=== PATIENT | female | born 1965 | race Caucasian/White ===

== ENCOUNTER 2017-09-25 08:20 | Inpatient (IN) | payer OTHER ==
[~2017-09-25] VITALS: Ht 165.1 cm; Wt 86.8 kg
[2017-09-25 10:21] LABS: BASOPHILS ABSOLUTE AUTO 0.04 K/mm3 (0.00-0.23); BASOPHILS PERCENT AUTO 0 % (0-2); EOSINOPHILS ABSOLUTE AUTO 0.03 K/mm3 (0.00-0.68); EOSINOPHILS PERCENT AUTO 0 % (0-6); Hemoglobin 12.2 g/dL (11.5-16.0); IMMATURE GRAN ABSOLUTE AUTO 0.12 K/mm3 (0.00-0.10); IMMATURE GRAN PERCENT AUTO 1 % (0-1); LYMPHOCYTES ABSOLUTE AUTO 1.71 K/mm3 (0.84-5.20); LYMPHOCYTES PERCENT AUTO 11 % (21-46); MONOCYTES ABSOLUTE AUTO 1.39 K/mm3 (0.16-1.47); MONOCYTES PERCENT AUTO 9 % (4-13); Mean Corpuscular HGB 29.8 pg (26.0-34.0); Mean Corpuscular Volume 90 fL (80-100); Mean Platelet Volume 10.9 fL (9.1-12.4); NEUTROPHILS ABSOLUTE AUTO 12.06 K/mm3 (1.96-9.15); NEUTROPHILS PERCENT AUTO 79 % (41-73); Platelet Count 222 K/mm3 (150-400); RDW Standard Deviation 49.7 fL (35.1-46.3); White Blood Cell Count 15.35 K/mm3 (4.00-11.30)
[2017-09-25 10:34] LABS: Alanine Aminotransfer (ALT/SGP 32 U/L (12-78); Albumin, Blood 2.4 g/dL (3.4-5.0); Albumin/Globulin Ratio 0.5 (0.8-1.8); Alk Phos 118 U/L (50-136); Anion Gap 6 mmol/L (6-16); Aspartate Aminotrans (AST/SGOT 36 U/L (12-37); Bilirubin, Total 0.4 mg/dL (0.1-1.0); Blood Urea Nitrogen 17 mg/dL (8-24); Bun/Creatinine Ratio 24.3 (12.0-20.0); CO2, Blood 32 mmol/L (21-32); Calcium, Blood 8.8 mg/dL (8.5-10.1); Chloride, Blood 98 mmol/L (98-108); Globulin, Blood 4.8 g/dL (2.2-4.0); Glomerular Filtration Rate >60 (60-); Glucose, Blood 112 mg/dL (70-99); Potassium, Blood 3.4 mmol/L (3.5-5.5); Sodium, Blood 136 mmol/L (136-145); Total Protein, Blood 7.2 g/dL (6.4-8.2)
[2017-09-26 06:25] LABS: BASOPHILS ABSOLUTE AUTO 0.02 K/mm3 (0.00-0.23); BASOPHILS PERCENT AUTO 0 % (0-2); EOSINOPHILS ABSOLUTE AUTO 0.12 K/mm3 (0.00-0.68); EOSINOPHILS PERCENT AUTO 1 % (0-6); Hematocrit 31.8 % (33.0-51.0); Hemoglobin 10.4 g/dL (11.5-16.0); IMMATURE GRAN ABSOLUTE AUTO 0.14 K/mm3 (0.00-0.10); IMMATURE GRAN PERCENT AUTO 1 % (0-1); LYMPHOCYTES ABSOLUTE AUTO 1.53 K/mm3 (0.84-5.20); LYMPHOCYTES PERCENT AUTO 11 % (21-46); MONOCYTES ABSOLUTE AUTO 1.18 K/mm3 (0.16-1.47); MONOCYTES PERCENT AUTO 8 % (4-13); Mean Corpuscular HGB 29.6 pg (26.0-34.0); Mean Corpuscular HGB Conc 32.7 g/dL (31.5-36.5); Mean Corpuscular Volume 91 fL (80-100); Mean Platelet Volume 10.4 fL (9.1-12.4); NEUTROPHILS ABSOLUTE AUTO 11.19 K/mm3 (1.96-9.15); NEUTROPHILS PERCENT AUTO 79 % (41-73); Platelet Count 221 K/mm3 (150-400); RDW Coefficient Variation 15.4 % (11.7-14.2); RDW Standard Deviation 51.1 fL (35.1-46.3); Red Blood Cell Count 3.51 M/mm3 (3.80-5.20); White Blood Cell Count 14.18 K/mm3 (4.00-11.30)
[2017-09-26 07:43] LABS: Anion Gap 7 mmol/L (6-16); Blood Urea Nitrogen 18 mg/dL (8-24); Bun/Creatinine Ratio 24.9 (12.0-20.0); CO2, Blood 30 mmol/L (21-32); Calcium, Blood 8.6 mg/dL (8.5-10.1); Chloride, Blood 101 mmol/L (98-108); Creatinine, Blood 0.72 mg/dL (0.40-1.00); Glomerular Filtration Rate >60 (60-); Glucose, Blood 92 mg/dL (70-99); Potassium, Blood 3.6 mmol/L (3.5-5.5); Sodium, Blood 138 mmol/L (136-145)
[2017-09-27 05:48] LABS: BASOPHILS ABSOLUTE AUTO 0.03 K/mm3 (0.00-0.23); BASOPHILS PERCENT AUTO 0 % (0-2); EOSINOPHILS ABSOLUTE AUTO 0.15 K/mm3 (0.00-0.68); EOSINOPHILS PERCENT AUTO 1 % (0-6); Hematocrit 31.6 % (33.0-51.0); Hemoglobin 10.3 g/dL (11.5-16.0); IMMATURE GRAN ABSOLUTE AUTO 0.28 K/mm3 (0.00-0.10); IMMATURE GRAN PERCENT AUTO 2 % (0-1); LYMPHOCYTES ABSOLUTE AUTO 1.67 K/mm3 (0.84-5.20); LYMPHOCYTES PERCENT AUTO 11 % (21-46); MONOCYTES ABSOLUTE AUTO 0.99 K/mm3 (0.16-1.47); MONOCYTES PERCENT AUTO 7 % (4-13); Mean Corpuscular HGB 29.9 pg (26.0-34.0); Mean Corpuscular HGB Conc 32.6 g/dL (31.5-36.5); Mean Corpuscular Volume 92 fL (80-100); Mean Platelet Volume 10.7 fL (9.1-12.4); NEUTROPHILS ABSOLUTE AUTO 12.21 K/mm3 (1.96-9.15); NEUTROPHILS PERCENT AUTO 80 % (41-73); Platelet Count 292 K/mm3 (150-400); RDW Coefficient Variation 15.6 % (11.7-14.2); RDW Standard Deviation 53.1 fL (35.1-46.3); Red Blood Cell Count 3.44 M/mm3 (3.80-5.20); White Blood Cell Count 15.33 K/mm3 (4.00-11.30)
[2017-09-27 13:12] LABS: Vancomycin, Trough 11.5 ug/mL (5.0-10.0)
[2017-09-28 06:55] LABS: BASOPHILS ABSOLUTE AUTO 0.04 K/mm3 (0.00-0.23); BASOPHILS PERCENT AUTO 0 % (0-2); EOSINOPHILS ABSOLUTE AUTO 0.23 K/mm3 (0.00-0.68); EOSINOPHILS PERCENT AUTO 2 % (0-6); Hematocrit 30.3 % (33.0-51.0); Hemoglobin 9.7 g/dL (11.5-16.0); IMMATURE GRAN ABSOLUTE AUTO 0.36 K/mm3 (0.00-0.10); IMMATURE GRAN PERCENT AUTO 3 % (0-1); LYMPHOCYTES ABSOLUTE AUTO 1.67 K/mm3 (0.84-5.20); LYMPHOCYTES PERCENT AUTO 12 % (21-46); MONOCYTES ABSOLUTE AUTO 1.03 K/mm3 (0.16-1.47); MONOCYTES PERCENT AUTO 7 % (4-13); Mean Corpuscular HGB 29.4 pg (26.0-34.0); Mean Corpuscular Volume 92 fL (80-100); Mean Platelet Volume 10.3 fL (9.1-12.4); NEUTROPHILS ABSOLUTE AUTO 10.85 K/mm3 (1.96-9.15); NEUTROPHILS PERCENT AUTO 77 % (41-73); Platelet Count 379 K/mm3 (150-400); RDW Coefficient Variation 15.5 % (11.7-14.2); RDW Standard Deviation 52.3 fL (35.1-46.3); White Blood Cell Count 14.18 K/mm3 (4.00-11.30)
[2017-09-29 14:24] LABS: Vancomycin, Trough 30.8 ug/mL (5.0-10.0)
[2017-09-30 05:48] LABS: Hematocrit 31.5 % (33.0-51.0); Hemoglobin 10.4 g/dL (11.5-16.0); Mean Corpuscular HGB 29.7 pg (26.0-34.0); Mean Corpuscular Volume 90 fL (80-100); Mean Platelet Volume 9.8 fL (9.1-12.4); Platelet Count 507 K/mm3 (150-400); RDW Coefficient Variation 15.3 % (11.7-14.2); White Blood Cell Count 15.93 K/mm3 (4.00-11.30)
[2017-09-30 05:52] LABS: Bun/Creatinine Ratio 16.5 (12.0-20.0); Calcium, Blood 9.3 mg/dL (8.5-10.1); Creatinine, Blood 1.15 mg/dL (0.40-1.00); Potassium, Blood 4.4 mmol/L (3.5-5.5)
[2017-09-30 07:04] LABS: BAND PERCENT MAN 2 % (0-8); BASOPHILS PERCENT MAN 0 % (0-2); EOSINOPHILS PERCENT MAN 0 % (0-6); LYMPHOCYTES ABSOLUTE MAN 2.86 K/mm3 (0.84-5.20); LYMPHOCYTES PERCENT MAN 18 % (21-46); METAMYELOCYTE ABSOLUTE MAN 0.15 K/mm3 (0.00-0.00); METAMYELOCYTE PERCENT MAN 1 % (0-0); MONOCYTES ABSOLUTE MAN 1.11 K/mm3 (0.16-1.47); MONOCYTES PERCENT MAN 7 % (4-13); NEUTROPHILS ABSOLUTE MAN 11.78 K/mm3 (1.96-9.15); SEG NEUTROPHILS PERCENT MAN 72 % (41-73); TOTAL CELLS COUNTED 100
[2017-10-01 10:32] LABS: Vancomycin, Trough 19.2 ug/mL (5.0-10.0)
[2017-10-02 05:55] LABS: BASOPHILS ABSOLUTE AUTO 0.07 K/mm3 (0.00-0.23); BASOPHILS PERCENT AUTO 1 % (0-2); EOSINOPHILS ABSOLUTE AUTO 0.24 K/mm3 (0.00-0.68); EOSINOPHILS PERCENT AUTO 2 % (0-6); Hematocrit 31.1 % (33.0-51.0); Hemoglobin 10.1 g/dL (11.5-16.0); IMMATURE GRAN ABSOLUTE AUTO 0.44 K/mm3 (0.00-0.10); IMMATURE GRAN PERCENT AUTO 4 % (0-1); LYMPHOCYTES ABSOLUTE AUTO 2.27 K/mm3 (0.84-5.20); LYMPHOCYTES PERCENT AUTO 19 % (21-46); MONOCYTES PERCENT AUTO 7 % (4-13); Mean Corpuscular HGB 29.5 pg (26.0-34.0); Mean Corpuscular HGB Conc 32.5 g/dL (31.5-36.5); Mean Corpuscular Volume 91 fL (80-100); Mean Platelet Volume 9.9 fL (9.1-12.4); NEUTROPHILS ABSOLUTE AUTO 8.26 K/mm3 (1.96-9.15); NEUTROPHILS PERCENT AUTO 68 % (41-73); Platelet Count 606 K/mm3 (150-400); RDW Coefficient Variation 14.9 % (11.7-14.2); RDW Standard Deviation 49.5 fL (35.1-46.3); Red Blood Cell Count 3.42 M/mm3 (3.80-5.20); White Blood Cell Count 12.08 K/mm3 (4.00-11.30)
[2017-10-02 06:21] LABS: Creatinine, Blood 1.27 mg/dL (0.40-1.00); Potassium, Blood 4.6 mmol/L (3.5-5.5)
[2017-10-02 11:15] LABS: Vancomycin, Trough 25.1 ug/mL (5.0-10.0)
[2017-10-02 16:42] LABS: Vancomycin, Random 21.2 ug/mL
[2017-10-03 05:39] LABS: BASOPHILS ABSOLUTE AUTO 0.04 K/mm3 (0.00-0.23); BASOPHILS PERCENT AUTO 0 % (0-2); EOSINOPHILS ABSOLUTE AUTO 0.24 K/mm3 (0.00-0.68); EOSINOPHILS PERCENT AUTO 2 % (0-6); Hematocrit 32.4 % (33.0-51.0); Hemoglobin 10.4 g/dL (11.5-16.0); IMMATURE GRAN PERCENT AUTO 4 % (0-1); LYMPHOCYTES ABSOLUTE AUTO 2.31 K/mm3 (0.84-5.20); LYMPHOCYTES PERCENT AUTO 22 % (21-46); MONOCYTES ABSOLUTE AUTO 0.84 K/mm3 (0.16-1.47); MONOCYTES PERCENT AUTO 8 % (4-13); Mean Corpuscular HGB 29.1 pg (26.0-34.0); Mean Corpuscular HGB Conc 32.1 g/dL (31.5-36.5); Mean Corpuscular Volume 91 fL (80-100); Mean Platelet Volume 9.8 fL (9.1-12.4); NEUTROPHILS ABSOLUTE AUTO 6.64 K/mm3 (1.96-9.15); NEUTROPHILS PERCENT AUTO 63 % (41-73); Platelet Count 602 K/mm3 (150-400); RDW Coefficient Variation 14.9 % (11.7-14.2); Red Blood Cell Count 3.57 M/mm3 (3.80-5.20); White Blood Cell Count 10.47 K/mm3 (4.00-11.30)
[2017-10-04] MEDS ORDERED: Hydrocodone-Ap1 EA20 PO (10:42)
[2017-10-04] MEDS ORDERED: CEPH500 PO (10:43)
[2017-10-04] MEDS ORDERED: FLUC150A PO (10:45)
== END 2017-10-04 12:08 | disposition home or self-care (01) | DRG 872 ==
LOC: ER 08:20 → MEDS 12:42 → ENPENDDIS 10-04 11:09 → MEDS 10-04 12:08
PROVIDERS: Hospitalist; Internal Medicine; Pharmacist; Physician Assistant
PROC: 3E0234Z Introduction of Serum, Toxoid and Vaccine into Muscle, Percutaneous Approach (ICD-10-PCS; principal; 2017-09-25)
DX: A41.9 Sepsis, unspecified organism (principal); L03.115 Cellulitis of right lower limb; Z23 Encounter for immunization; E87.6 Hypokalemia; B95.61 Methicillin susceptible Staphylococcus aureus infection as the cause of diseases classified elsewhere; B95.1 Streptococcus, group B, as the cause of diseases classified elsewhere
CPT/HCPCS: 36415; 73701; 80048; 80053; 80202; 83605; 85025; 85651; 86140; 87040; 87070; 87077; 87147; 87186; 87205; 93971; 96361; 96365; 96375; 99285; C1751; J0690; J1650; J1885; J1956; J2543; J3370; J7030; J7050; Q2038; Q9967

== ENCOUNTER 2019-11-09 16:16 | Inpatient (IN) | payer SELFPAY ==
[~2019-11-09] VITALS: Ht 165.1 cm; Wt 98.1 kg
[~2019-11-09 16:16] MED LIST: CEPH500 PO; FLUC150A PO; Hydrocodone-Ap1 EA20 PO
[2019-11-09 17:16] LABS: BASOPHILS ABSOLUTE AUTO 0.06 K/mm3 (0.00-0.23); BASOPHILS PERCENT AUTO 1 % (0-2); EOSINOPHILS ABSOLUTE AUTO 0.16 K/mm3 (0.00-0.68); EOSINOPHILS PERCENT AUTO 2 % (0-6); Hematocrit 40.5 % (33.0-51.0); Hemoglobin 12.8 g/dL (11.5-16.0); IMMATURE GRAN ABSOLUTE AUTO 0.03 K/mm3 (0.00-0.10); IMMATURE GRAN PERCENT AUTO 0 % (0-1); LYMPHOCYTES ABSOLUTE AUTO 2.46 K/mm3 (0.84-5.20); LYMPHOCYTES PERCENT AUTO 24 % (21-46); MONOCYTES ABSOLUTE AUTO 0.76 K/mm3 (0.16-1.47); MONOCYTES PERCENT AUTO 7 % (4-13); Mean Corpuscular HGB 28.5 pg (26.0-34.0); Mean Corpuscular HGB Conc 31.6 g/dL (31.5-36.5); Mean Corpuscular Volume 90 fL (80-100); Mean Platelet Volume 12.8 fL (9.1-12.4); NEUTROPHILS ABSOLUTE AUTO 6.86 K/mm3 (1.96-9.15); NEUTROPHILS PERCENT AUTO 66 % (41-73); Platelet Count 211 K/mm3 (150-400); RDW Coefficient Variation 14.5 % (11.7-14.2); RDW Standard Deviation 47.2 fL (35.1-46.3); Red Blood Cell Count 4.49 M/mm3 (3.80-5.20); White Blood Cell Count 10.33 K/mm3 (4.00-11.30)
[2019-11-09 17:40] LABS: Alanine Aminotransfer (ALT/SGP 32 U/L (12-78); Albumin, Blood 3.3 g/dL (3.4-5.0); Albumin/Globulin Ratio 0.9 (0.8-1.8); Alk Phos 109 U/L (50-136); Anion Gap 7 mmol/L (6-16); Aspartate Aminotrans (AST/SGOT 23 U/L (12-37); Bilirubin, Total 0.6 mg/dL (0.1-1.0); Blood Urea Nitrogen 24 mg/dL (8-24); Bun/Creatinine Ratio 28.6 (12.0-20.0); CO2, Blood 24 mmol/L (21-32); Calcium, Blood 9.2 mg/dL (8.5-10.1); Chloride, Blood 107 mmol/L (98-108); Creatinine, Blood 0.84 mg/dL (0.40-1.00); Globulin, Blood 3.5 g/dL (2.2-4.0); Glomerular Filtration Rate >60 (60-); Glucose, Blood 118 mg/dL (70-99); Potassium, Blood 3.9 mmol/L (3.5-5.5); Sodium, Blood 138 mmol/L (136-145); Total Protein, Blood 6.8 g/dL (6.4-8.2); Troponin I 0.177 ng/mL (0.000-0.040)
--- NOTE | 2019-11-10 02:36 | NUR ---
ADMISSION: APPROX 2143 PATIENT ARRIVED TO ROOM PCU14 VIA GURNEY FROM ER. PATIENT ABLE TO AMBULATE WITH SBA TO BED. PATIENT STEADY ON HER FEET. LOWER EXTREMETIES RED AND FLAKING WITH MULTIPLE SCABS, BILATERAL UPPER EXTREMITIES RED AND COOL TO THE TOUCH. ALL EXTREMITIES <3 SECOUNDS CAPILLARY REFILL. PATIENT ALERT AND ORIENTED. ADMISSION COMPLETED AND PATIENT ORIENTED TO ROOM, CALL LIGHT AND HOSPITAL POLICIES. NEW IV PLACED IN LEFT FOREARM. PATIENT VSS, CALL LIGHT WITHIN REACH, BED LOW AND LOCKED AND PATIENT COMPLIANT WITH CARE.
[2019-11-10 04:21] LABS: BASOPHILS ABSOLUTE AUTO 0.07 K/mm3 (0.00-0.23); BASOPHILS PERCENT AUTO 1 % (0-2); EOSINOPHILS PERCENT AUTO 2 % (0-6); Hemoglobin 12.7 g/dL (11.5-16.0); IMMATURE GRAN ABSOLUTE AUTO 0.03 K/mm3 (0.00-0.10); IMMATURE GRAN PERCENT AUTO 0 % (0-1); LYMPHOCYTES PERCENT AUTO 35 % (21-46); MONOCYTES ABSOLUTE AUTO 0.74 K/mm3 (0.16-1.47); MONOCYTES PERCENT AUTO 7 % (4-13); Mean Corpuscular HGB 28.3 pg (26.0-34.0); Mean Corpuscular HGB Conc 31.8 g/dL (31.5-36.5); Mean Corpuscular Volume 89 fL (80-100); Mean Platelet Volume 12.8 fL (9.1-12.4); NEUTROPHILS ABSOLUTE AUTO 5.89 K/mm3 (1.96-9.15); NEUTROPHILS PERCENT AUTO 55 % (41-73); NRBC ABSOLUTE 0.02 K/mm3 (0.00-0.02); NRBC Auto 0.2 /100 WBC (0.0-0.2); Platelet Count 209 K/mm3 (150-400); RDW Coefficient Variation 14.4 % (11.7-14.2); RDW Standard Deviation 45.9 fL (35.1-46.3); Red Blood Cell Count 4.48 M/mm3 (3.80-5.20); White Blood Cell Count 10.73 K/mm3 (4.00-11.30)
[2019-11-10 04:39] LABS: Anion Gap 8 mmol/L (6-16); Blood Urea Nitrogen 25 mg/dL (8-24); Bun/Creatinine Ratio 24.8 (12.0-20.0); CO2, Blood 26 mmol/L (21-32); Chloride, Blood 105 mmol/L (98-108); Creatinine, Blood 1.01 mg/dL (0.40-1.00); Glomerular Filtration Rate >60 (60-); Glucose, Blood 111 mg/dL (70-99); Potassium, Blood 3.9 mmol/L (3.5-5.5); Sodium, Blood 139 mmol/L (136-145)
--- NOTE | 2019-11-10 06:30 | NUR ---
SHIFT SUMMARY: PATIENT ANXIOUS ALL SHIFT, C/O SOB (O2 SATURATION 95-97%), DYSPNIC WITH EXERTION. ABLE TO USE BSC INDEPENDENTLY. PATIENT COMPLIANT WITH CARE, USING CALL LIGHT APPROPRIATLY. VSS, NO OTHER ISSUES NOTED.
--- NOTE | 2019-11-10 08:15 | NUR ---
ASSUMPTION OF CARE ASSUMED CARE OF PT AT APPROX 0700. PT RESTING IN BED, ABLE TO REPOSITION SELF IN BED. PT ON 2L O2 VIA NC, SPO2 95%, USING PRN FOR SOB; SPO2 ON RA >90%; LS FINE CRACKLES IN UPPER LOBES; DIM BAES. PT REPORTS LOWER CHEST PRESSURE/EPIGASTRIC PRESSURE. PT A&O; ANXIOUS BUT COOPERATIVE WITH CARE. IND TO BSC. PT DIZZINESS AND NASUEA. PT RECEIVING 40MG OF LASIX EARLY THIS AM PRIOR TO SHIFT CHANGE. VSS. WILL CONTINUE TO MONITOR.
--- NOTE | 2019-11-10 10:47 | NUR ---
ECHOCARDIOGRAM COMPLETE
--- NOTE | 2019-11-10 16:10 | NUR ---
Spiritual care visit conducted. Patient is sitting up in bed and alert. Patient immediately tells me about her medical issues, about her guilt over the drug use and abuse she has done to her body and about need for God's forgiveness and healing. I listen empathically, explore adventism beliefs, hear confession, reinforce helpful attitudes and practices and provide pastoral branch credit counselor and prayer. Patient responds well and displays evidence of catharsis and forgiveness. Patient verbalizes gratitude for the visit. I will continue to remain avilable to patient and family.
--- NOTE | 2019-11-10 18:16 | NUR ---
SHIFT SUMMARY PT A&Ox4; ANXIOUS BUT COOPERATIVE WITH CARE. PT RESTING IN BED DURING SHIFT. PT REPORTS SOB AT REST AND EXERTION; SPO2 >90% T/O SHIFT, LS FINE CRACKLES IN UPPER LOBES AND DIM BASES T/O SHIFT, PT USING 2L O2 VIA NC PRN NEEDS FOR SOB. PT DENIES PAIN, CHEST PAIN/PRESSURE, DIZZINESS AND NASUEA. PT RECEIVING IV LASIX. ECHO COMPLETED DURING SHIFT. SWELLING NOTED BLE, PT STATES DECREASED. VSS. NO OTHER ACUTE CHANGES NOTED DURING SHIFT. YULY CONTINUE TO MONITOR UNTIL REPORT GIVEN TO ONCOMING RN.
[2019-11-11 04:45] LABS: BASOPHILS ABSOLUTE AUTO 0.05 K/mm3 (0.00-0.23); BASOPHILS PERCENT AUTO 1 % (0-2); EOSINOPHILS ABSOLUTE AUTO 0.23 K/mm3 (0.00-0.68); EOSINOPHILS PERCENT AUTO 3 % (0-6); Hemoglobin 13.2 g/dL (11.5-16.0); IMMATURE GRAN ABSOLUTE AUTO 0.05 K/mm3 (0.00-0.10); IMMATURE GRAN PERCENT AUTO 1 % (0-1); LYMPHOCYTES ABSOLUTE AUTO 3.13 K/mm3 (0.84-5.20); LYMPHOCYTES PERCENT AUTO 36 % (21-46); MONOCYTES ABSOLUTE AUTO 0.64 K/mm3 (0.16-1.47); MONOCYTES PERCENT AUTO 7 % (4-13); Mean Corpuscular HGB 28.9 pg (26.0-34.0); Mean Corpuscular HGB Conc 32.2 g/dL (31.5-36.5); Mean Corpuscular Volume 90 fL (80-100); NEUTROPHILS ABSOLUTE AUTO 4.53 K/mm3 (1.96-9.15); NEUTROPHILS PERCENT AUTO 52 % (41-73); Platelet Count 186 K/mm3 (150-400); RDW Coefficient Variation 15.3 % (11.7-14.2); RDW Standard Deviation 47.2 fL (35.1-46.3); Red Blood Cell Count 4.56 M/mm3 (3.80-5.20); White Blood Cell Count 8.63 K/mm3 (4.00-11.30)
[2019-11-11 04:46] LABS: Mean Platelet Volume 13.4 fL (9.1-12.4)
--- NOTE | 2019-11-11 05:50 | NUR ---
SHIFT SUMMARY: PATIENT HAD A 9 SECOUND RUN OF VTACH WHILE AMBULATING AROUND THE ROOM, ASYMPTOMATIC, SEE CHART. GALE POWERGLIDE NOT DRAWING BUT FLUSHES WELL, VSS, VALL LIGHT WITHIN REACH, BED LOW AND LOCKED.
[2019-11-11 05:51] LABS: Anion Gap 7 mmol/L (6-16); Blood Urea Nitrogen 24 mg/dL (8-24); Bun/Creatinine Ratio 24.5 (12.0-20.0); CO2, Blood 30 mmol/L (21-32); Chloride, Blood 103 mmol/L (98-108); Creatinine, Blood 0.98 mg/dL (0.40-1.00); Glomerular Filtration Rate >60 (60-); Glucose, Blood 116 mg/dL (70-99); Magnesium, Blood 2.2 mg/dL (1.6-2.4); Potassium, Blood 3.5 mmol/L (3.5-5.5); Sodium, Blood 140 mmol/L (136-145); Troponin I 0.108 ng/mL (0.000-0.040)
--- NOTE | 2019-11-11 08:18 | NUR ---
ASSUMPTION OF CARE PT SITTING UP ON SIDE OF BED; A&Ox4; CALM AND COOPERATIVE WITH CARE. PT REPORTS POOR SLEEP LAST NOC, ENCOURAGED PT TO REST BETWEEN VISITORS TODAY. PT SPO2 AT 93% ON RA; DENEIS SOB AND REPORTS WHEN SHE IS SOB FRQUENCY AND INTENSITY HAVE DECREASED. LS FIN CRACKELS IN UPPER LOBES, DIM BASES. PT DENIES PAIN, CHEST PAIN/PRESSURE AND DIZZINESS. PT REPORTS BASELINE NUMB/TINGLING TO ALL EXTREMITIES. VSS. WILL CONTINUE TO MONITOR.
--- NOTE | 2019-11-11 12:40 | NUR ---
PT STARTED ON COREG, SPIRONOLACTONE AND LISINOPRIL; PT EDUCATED ON MEDICATION FUCNTION AND SIDE EFFECTS. PT STATES ONCE SHE IS OUT SHE WILL LOOK UP NATURAL WAYS TO LOWER BP; PT REEDUCATED ON USE OF MEDICATIONS AND CHF/CARDIAC FUNCTION.
--- NOTE | 2019-11-11 15:26 | NUR ---
PT HAS BEEN SLEEPING INTERMITTENTLY T/O SHIFT. REPORTS SOB WITH AMBULATION, DENIES SOB AT REST T/O SHIFT. VSS. WILL CONTINUE TO MONITOR.
--- NOTE | 2019-11-11 15:36 | NUR ---
Spiritual care vsiit conducted. Patient is walking toward the restroom so I provided a quick prayer and patient voiced appreciation.
--- NOTE | 2019-11-11 18:27 | NUR ---
SHIFT SUMMARY NO OTHER CHANGES T/O SHIFT. PT RESTING IN BED SLEEPING INTERMITTENTLY. PT TRANSITIONING TO PO LASIX IN AM. VSS. WILL CONTINUE TO MONITOR UNTIL REPORT GIVEN TO ONCOMING RN.
--- NOTE | 2019-11-12 05:33 | NUR ---
END OF SHIFT SUMMARY NO ACUTE3 CHANGES THIS SHIFT. VSS. CONTINUES WITH CONSTANT PVC'S TO WHICH PT IS ASYMPTOMATIC. PT AXO AND VERY PLEASANT WITH SDTAFF. PRESENTS WITH PSORIASIS LOKING RASH ON MULTIPLE LIMBS. PT HAS NED BREAHING EASY THIS SDHIFT WITH FEW INSTANCES OF SOB. LUNGS SOUNDS WITH FINE CRACKLES IN MID TO LOW BASES. PT STATES HER BRETHING CONTINUES TO FEEL EASIER. OTHERWISE, PT HAS BEEN RESTING T/O THE SHIFT. WILL CONTINUE TO MONITOR UNTIL SHIFT CHANGE.
[2019-11-12 07:35] LABS: Bun/Creatinine Ratio 24.8 (12.0-20.0); Calcium, Blood 9.7 mg/dL (8.5-10.1); Creatinine, Blood 1.17 mg/dL (0.40-1.00); Potassium, Blood 4.6 mmol/L (3.5-5.5)
[2019-11-12] MEDS ORDERED: CARV6.25 PO (09:08)
[2019-11-12] MEDS ORDERED: FURO40 PO (09:09)
[2019-11-12] MEDS ORDERED: SPIR25 PO (09:09)
--- NOTE | 2019-11-12 11:12 | NUR ---
PATIENT DISCHARGE: PATIENT DISCHARGED TO HOME THIS SHIFT. MEDICATION RECONCILIATION COMPLETED; MED LIST FAXED TO [facility]. DISCHARGE EDUCATION COMPLETED WITH PATIENT. PATIENT TRANSPORTED TO EXIT BY [facility] STAFF WITH WHEELCHAIR AT 1106. PATIENT DEPARTED [facility] VIA PRIVATE AUTO.
== END 2019-11-12 11:20 | disposition home or self-care (01) | DRG 281 ==
LOC: ER 16:16 → PCU 18:38
PROVIDERS: Emergency Medicine; Internal Medicine; ADMIT Hospitalist
DX: I50.41 Acute combined systolic (congestive) and diastolic (congestive) heart failure (principal); I21.A1 Myocardial infarction type 2; I47.2 Ventricular tachycardia; N17.9 Acute kidney failure, unspecified; E66.01 Morbid (severe) obesity due to excess calories; F15.10 Other stimulant abuse, uncomplicated; F17.210 Nicotine dependence, cigarettes, uncomplicated; N18.3 Chronic kidney disease, stage 3 (moderate); T46.4X5A Adverse effect of angiotensin-converting-enzyme inhibitors, initial encounter; Z86.718 Personal history of other venous thrombosis and embolism; Z68.33 Body mass index [BMI] 33.0-33.9, adult
CPT/HCPCS: 36415; 71046; 80048; 80053; 83735; 83880; 84443; 84484; 85025; 93005; 93010; 93306; 96374; 99285-25; A9270; A9270-GY; C1751; J1650; J1940; J3475

== ENCOUNTER 2020-04-01 14:51 | Inpatient (IN) | payer SELFPAY ==
[~2020-04-01] VITALS: Ht 165.1 cm; Wt 92.3 kg
[~2020-04-01 14:51] MED LIST changes: +CARV6.25 PO; +FURO40 PO; +SPIR25 PO
[2020-04-01 15:29] LABS: BASOPHILS ABSOLUTE AUTO 0.07 K/mm3 (0.00-0.23); BASOPHILS PERCENT AUTO 1 % (0-2); EOSINOPHILS ABSOLUTE AUTO 0.22 K/mm3 (0.00-0.68); EOSINOPHILS PERCENT AUTO 3 % (0-6); Hematocrit 40.2 % (33.0-51.0); Hemoglobin 12.6 g/dL (11.5-16.0); IMMATURE GRAN ABSOLUTE AUTO 0.03 K/mm3 (0.00-0.10); IMMATURE GRAN PERCENT AUTO 0 % (0-1); LYMPHOCYTES ABSOLUTE AUTO 3.55 K/mm3 (0.84-5.20); LYMPHOCYTES PERCENT AUTO 42 % (21-46); MONOCYTES ABSOLUTE AUTO 0.46 K/mm3 (0.16-1.47); MONOCYTES PERCENT AUTO 6 % (4-13); Mean Corpuscular HGB 29.6 pg (26.0-34.0); Mean Corpuscular HGB Conc 31.3 g/dL (31.5-36.5); Mean Corpuscular Volume 95 fL (80-100); Mean Platelet Volume 12.6 fL (9.1-12.4); NEUTROPHILS PERCENT AUTO 49 % (41-73); NRBC ABSOLUTE 0.03 K/mm3 (0.00-0.02); NRBC Auto 0.4 /100 WBC (0.0-0.2); Platelet Count 209 K/mm3 (150-400); RDW Coefficient Variation 15.5 % (11.7-14.2); RDW Standard Deviation 52.5 fL (35.1-46.3); Red Blood Cell Count 4.25 M/mm3 (3.80-5.20); White Blood Cell Count 8.43 K/mm3 (4.00-11.30)
[2020-04-01 15:48] LABS: Albumin, Blood 3.3 g/dL (3.4-5.0); Albumin/Globulin Ratio 0.8 (0.8-1.8); Bilirubin, Total 0.7 mg/dL (0.1-1.0); Bun/Creatinine Ratio 20.3 (12.0-20.0); Creatinine, Blood 1.23 mg/dL (0.40-1.00); Globulin, Blood 3.9 g/dL (2.2-4.0); Potassium, Blood 4.2 mmol/L (3.5-5.5); Total Protein, Blood 7.2 g/dL (6.4-8.2); Troponin I 0.079 ng/mL (0.000-0.040)
--- NOTE | 2020-04-01 20:30 | NUR ---
CALLED FOR REPORT. ROOM 12 CLEAN. RN WILL CALL BACK.
--- NOTE | 2020-04-01 22:42 | NUR ---
ASSUMED CARE OF PATIENT AT APPROXIMATELY 2140 FROM ED MAUDE MCINTOSH. PATIENT ARRIVED TO UNIT VIA STRETCHER; TRANSFER VIA VERBAL CUES FROM ED TO PCU STRETCHER. PATIENT ALERT AND ORIENTED X4; INDEPENDENT IN ROOM TO BEDSIDE COMMODE. ADMISSION COMPLETE. NSR ON TELE; OXYGEN SATURATION ABOVE 90% ON ROOM AIR. PATIENT DENIES PAIN, NUMBNESS, TINGLING, DIZZINESS OR NAUSEA. PIV S/L. PATIENT CURRENTLY RESTING IN BED; CALL LIGHT IN REACH; BED IN LOWEST POSISTION; WILL CONTINUE TO MONITOR AND ASSESS UNTIL END OF SHIFT.
--- NOTE | 2020-04-02 06:26 | NUR ---
PATIENT REPORTS SOB; OXYGEN SATURATION 86; 2LPM VIA NC APPLIED; PATIENT REPORTS SHE MAY NOT BE ABLE TO WEAR IT LONG. NO OTHER ACUTE CHANGES TO REPORT. WILL CONTINUE TO MONITOR AND ASSESS UNTIL END OF SHIFT.
--- NOTE | 2020-04-02 08:00 | NUR ---
PT LAYING IN BED WITH EYES CLOSED, WAKES EASILY, IS IRRITABLE, NOT DEALING WITH BEING WOKE OR ALARMS IN ROOM, A/OX3, COOPERATIVE WITH CARE, FOLLOWS COMMANDS WELL, DENIES PAIN, STATES SHE'S JUST SOB, LUNGS ARE CLEAR, DIM IN BASES, RESP EVEN AND UNLABORED, NO COUGH NOTED, HRR, TELE IN PLACE RUNNING SR WITH BBB PER MONITOR, SEE STRIP, 2+EDEMA NOTED TO B/L LE, UP TO KNEES, LEGS ARE RED, IV SITE IS CLEAR AND PATENT, BTX4, ABD FLAT SOFT NONTENDER, VOIDS WITHOUT DIFF, SKIN HAS RED SWOLLEN LEGS, SOME RANDOM RASH AREAS, MAEW, UP AD RACIEL IN ROOM, LISA, CALL LIGHT IN REACH.
[2020-04-02 08:05] LABS: BASOPHILS ABSOLUTE AUTO 0.07 K/mm3 (0.00-0.23); BASOPHILS PERCENT AUTO 1 % (0-2); EOSINOPHILS ABSOLUTE AUTO 0.28 K/mm3 (0.00-0.68); EOSINOPHILS PERCENT AUTO 3 % (0-6); Hematocrit 38.7 % (33.0-51.0); Hemoglobin 12.3 g/dL (11.5-16.0); IMMATURE GRAN ABSOLUTE AUTO 0.03 K/mm3 (0.00-0.10); IMMATURE GRAN PERCENT AUTO 0 % (0-1); LYMPHOCYTES ABSOLUTE AUTO 3.71 K/mm3 (0.84-5.20); LYMPHOCYTES PERCENT AUTO 43 % (21-46); MONOCYTES ABSOLUTE AUTO 0.49 K/mm3 (0.16-1.47); MONOCYTES PERCENT AUTO 6 % (4-13); Mean Corpuscular HGB 29.6 pg (26.0-34.0); Mean Corpuscular HGB Conc 31.8 g/dL (31.5-36.5); Mean Corpuscular Volume 93 fL (80-100); NEUTROPHILS ABSOLUTE AUTO 4.04 K/mm3 (1.96-9.15); NEUTROPHILS PERCENT AUTO 47 % (41-73); NRBC ABSOLUTE 0.04 K/mm3 (0.00-0.02); NRBC Auto 0.5 /100 WBC (0.0-0.2); Platelet Count 196 K/mm3 (150-400); RDW Coefficient Variation 15.1 % (11.7-14.2); Red Blood Cell Count 4.16 M/mm3 (3.80-5.20); White Blood Cell Count 8.62 K/mm3 (4.00-11.30)
[2020-04-02 08:15] LABS: Mean Platelet Volume 13.2 fL (9.1-12.4)
[2020-04-02 08:19] LABS: Bun/Creatinine Ratio 22.7 (12.0-20.0); Calcium, Blood 9.3 mg/dL (8.5-10.1); Creatinine, Blood 1.19 mg/dL (0.40-1.00); Potassium, Blood 4.1 mmol/L (3.5-5.5)
--- NOTE | 2020-04-02 14:16 | NUR ---
PT WILL BE TRANSFERRED TO MEDICAL FLOOR, REPORT TO PRAVEEN SANTORO, PT WAS INFORMED OF TRANSFER, WILL TAKE HER VIA WHEELCHAIR WITH MAIN ENTREE COOK AND CASHIER IN ATTENDENCE.
--- NOTE | 2020-04-02 14:39 | NUR ---
PT LEFT FOR MEDICAL FLOOR VIA WHEELCHAIR WITH ASSISTANT ASSOCIATE PROFESSOR IN ATTENDENCE WTIH ALL HER BELONGINGS.
--- NOTE | 2020-04-02 14:45 | NUR ---
PATIENT TRANSFERRED FROM PCU 12 TO ROOM 304. REPORTS RECEIVED FROM MAUDE BALDERRAMA. PATIENT TRANSFERRED FROM W/C TO BED INDEPENDENTLY. VSS, ON RA NOW. ORIENTED TO ROOM AND USE OF CALL LIGHT. 2+ EDEMA TO BLE WITH REDNESS AND BLISTERING, PATIENT REPORTS EDEMA HAS IMPROVED SIGNIFICANTLY. DENIES ANY PAIN OR NEEDS AT THIS TIME.
--- NOTE | 2020-04-03 04:36 | NUR ---
SHIFT SUMMARY ASSUMED CARE OF PT AT 1900. PT IS A/OX4, DENIES N/T IN EXTREMITES. HEART SOUNDS REGULAR, TELE SHOWS SINUS BBB PVC @ 78, DENIES CP. LUNG SOUNDS CLEAR, DENIES SOB. PT IS INDEPENDENT TO BATHROOM. PT REPORTS GOING TO THE BATHROOM ATLEAST 4 TIMES TONIGHT. PT LEGS ARE SWOLLEN AND DISCOLORED. AT AROUND 0300, PT CAME OUT OF THE ROOM YELLING, CAN SOMEONE HELP ME. PT STATED THAT SHE WAS HAVING CHEST PAIN AND THAT SHE NEEDED LASIX. TELE SHOWED NO ACUTE CHANGES. PT STATED THAT SHE HASNT BEEN ABLE TO SLEEP AND SHE HAS A HEADACHE AND IS HUNGRY. PT MEDICATED FOR SLEEP AND GIVEN MEDICATION FOR PAIN. PT HAS BEEN SLEEPING SINCE. CALL LIGHT IN REACH, BED IN LOWEST POSTION, WILL CONTINUE TO MONITOR UNTIL DAYSHIFT NURSE ARRIVES.
[2020-04-03 05:23] LABS: Hematocrit 43.5 % (33.0-51.0); Hemoglobin 13.8 g/dL (11.5-16.0); Mean Corpuscular HGB 29.6 pg (26.0-34.0); Mean Corpuscular HGB Conc 31.7 g/dL (31.5-36.5); Mean Corpuscular Volume 93 fL (80-100); NRBC ABSOLUTE 0.02 K/mm3 (0.00-0.02); NRBC Auto 0.2 /100 WBC (0.0-0.2); Platelet Count 201 K/mm3 (150-400); RDW Coefficient Variation 15.1 % (11.7-14.2); Red Blood Cell Count 4.66 M/mm3 (3.80-5.20)
[2020-04-03 05:30] LABS: Mean Platelet Volume 13.6 fL (9.1-12.4)
[2020-04-03 05:48] LABS: Bun/Creatinine Ratio 27.4 (12.0-20.0); Calcium, Blood 9.7 mg/dL (8.5-10.1); Creatinine, Blood 1.13 mg/dL (0.40-1.00); Potassium, Blood 3.9 mmol/L (3.5-5.5)
[2020-04-03] MEDS ORDERED: Aspir 8181 MG PO (11:48)
--- NOTE | 2020-04-03 13:07 | NUR ---
PATIENT D/C'D TO HOME WITH . NO NEW RX MEDICATIONS. DC INSTRUCTIONS AND EDUCATION DISCUSSED WITH PATIENT AND COPY PROVIDED. PATIENT DENIES ANY FURTHER QUESTIONS OR CONCERNS.
== END 2020-04-03 13:00 | disposition home or self-care (01) | DRG 291 ==
LOC: ER 14:51 → MEDS 14:52 → ERHOLD 14:52 → MEDS 14:52 → ER 14:52 → PCU 21:40 → ERHOLD 21:40 → PCU 04-02 12:44 → MEDS 04-02 14:37 → PCU 04-02 14:37 → MEDS 04-02 16:29 → PCU 04-03 08:15 → ERHOLD 04-03 08:15 → MEDS 04-03 08:15
PROVIDERS: Emergency Medicine; Internal Medicine; Nurse Practitioner Acute Care; ADMIT Family Medicine
DX: I13.0 Hypertensive heart and chronic kidney disease with heart failure and stage 1 through stage 4 chronic kidney disease, or unspecified chronic kidney disease (principal); J96.01 Acute respiratory failure with hypoxia; I50.23 Acute on chronic systolic (congestive) heart failure; N17.9 Acute kidney failure, unspecified; N18.3 Chronic kidney disease, stage 3 (moderate); L40.9 Psoriasis, unspecified; F19.10 Other psychoactive substance abuse, uncomplicated; E66.9 Obesity, unspecified; Z68.34 Body mass index [BMI] 34.0-34.9, adult; F17.210 Nicotine dependence, cigarettes, uncomplicated; Z86.718 Personal history of other venous thrombosis and embolism
CPT/HCPCS: 36415; 71046; 80048; 80053; 83690; 83880; 84484; 85025; 85027; 93005; 93010; 94762; 96372; 96374; 96376; 99285-25; A9270; A9270-GY; G0378; J1650; J1940